=== PATIENT | female | born 1985 | race African-American/Black ===

== ENCOUNTER 2018-08-28 10:31 | Observation (INO) | payer OTHER, SELFPAY ==
[2018-08-28 11:17] LABS: Hemoglobin 4.4 g/dL (12.0-16.0); Mean Corpuscular HGB CONC 29.7 g/dL (32.0-36.0); Mean Corpuscular Hemoglobin 19.8 pg (27.0-31.0); Mean Corpuscular Volume 66.7 fL (78.0-98.0); Mean Platelet Volume 9.3 fL (7.4-10.4); Platelet Count 381 thou/uL (130-400); RBC Distribution Width 18.3 % (11.5-14.5); Red Blood Cell (RBC) Count 2.21 mill/uL (4.20-5.40); White Blood Cell (WBC) Count 8.9 thou/uL (4.8-10.8)
[2018-08-28 11:42] LABS: #Lymphocytes 1.6 thou/uL (1.20-3.40); #Monocytes 0.4 thou/uL (0.11-0.59); #Neutrophils 6.8 thou/uL (1.40-6.50); %Basophils 0.2 % (0.0-1.0); %Eosinophils 0.4 % (0.0-10.0); %Neutrophils 76.4 % (42.0-75.0); Hypochromia SLIGHT = 6-15 cells (100X) (0-5/hpf); MDiff Complete? YES; Microcytosis MODERATE=15-30 cells (100X) (0-5/hpf); Ovalocytes SLIGHT = 2-5 cells (100X) (0-1/hpf); Platelet Morphology Comment Appears Adequate; Polychromasia MODERATE = 3-4 cells (100X) (0-2/hpf); Tear Drops SLIGHT = 2-5 cells (100X) (0-1/hpf)
[2018-08-28] MEDS ORDERED: Acetaminophen 325 MG TAB PO PRN (11:45)
[2018-08-28] MEDS ORDERED: Ondansetron PF 4 MG/2 ML Vial IVP PRN (11:45)
[2018-08-28] MEDS ORDERED: Ondansetron ODT 4 MG TAB PO PRN (11:45)
[2018-08-28] MEDS ORDERED: Zolpidem Tartrate 5 MG TAB PO PRN (11:45)
[2018-08-28 12:06] LABS: ALT (SGPT) 12 U/L (8-55); AST (SGOT) 14 U/L (5-34); Albumin 4.1 g/dL (3.5-5.0); Alkaline Phosphatase 87 U/L (40-150); Anion Gap 11 mmol/L (10-20); BHCG - Serum Negative (NEGATIVE); BUN (Urea Nitrogen) 10 mg/dL (7.0-18.7); Bilirubin, Total 0.4 mg/dL (0.2-1.2); Calc. Creatinine Clearance 0 mL/min (70-130); Calcium 9.2 mg/dL (7.8-10.44); Carbon Dioxide 26 mmol/L (22-29); Chloride 104 mmol/L (98-107); Estimated GFR-MDRD Greater than 90; Globulin 3.6 g/dL (2.4-3.5); Glucose 123 mg/dL (70-105); Potassium 3.7 mmol/L (3.5-5.1); Pregs Control Background? CLEAR/WHITE (CLR/WHITE); Pregs Control Bar Appear? YES (CONTROL BAR); Protein, Total 7.7 g/dL (6.0-8.3); Sodium 137 mmol/L (136-145)
--- NOTE | 2018-08-28 12:35 | ULT ---
ULTRASOUND PELVIC ULTRASOUND TRANSVAGINAL DOPPLER DUPLEX: DATE: 08-28-18 HISTORY: Menorrhagia in 33-year-old female. TECHNIQUE: Transabdominal transducer used to evaluate intrapelvic contents. Endovaginal transducer used to visua lize intrapelvic contents in greater detail. Color flow Doppler and Pulsed Doppler spectral waveform analysis of ovaries. FINDINGS: Uterus measures 7.5 x 9 x 5.5 cm. Endometrial stripe is 0.8 cm (8 mm). A region of hypervascularity surrounding the endometrial stripe at the lower uterine segment. No moderate size or large uterine leiomyoma identified. No free fluid in the cul-de-sac identified. Right ovary: 4.2 x 2.3 x 3.5 cm Left ovary: 3.2 x 4.5 x 2.5 cm Blood flow demonstrated in both ovaries by doppler. IMPRESSION: 1. Endometrial stripe 8 mm. 2. Possibility of polycystic ovary disease. Recommend clinical correlation. ARIAN Johnson POS: DODIE
[2018-08-28 15:48] VITALS: BMI 41.7
[2018-08-28] MEDS: Famotidine 20 MG TAB PO SCH (21:06)
--- NOTE | 2018-08-28 23:54 | HP ---
CHIEF COMPLAINT: Vaginal bleeding and dizziness. HISTORY OF PRESENT ILLNESS: This is a 33-year-old, para 3, who presented to the emergency department with a history of abnormal uterine bleeding as well as dizziness. She reports that she has had almost daily bleeding since she delivered her last child 11 years ago, but over the last several years it has become heavy , requiring multiple transfusions. The patient reports that she has been seen by doctor in [place] for this and has had D and C, tried control pills, but would ultimately like a hysterectomy. She denies any abdominal pain or cramping associated with this. She reports that at its heaviest she has to use a super tampon, a large pad and extra tissue, clean it, and has to change it every hours. She reports that the bleeding is mild at this time. REVIEW OF SYSTEMS: Negative for head, eyes, ears, nose, throat, cardiovascular, respiratory, GI, , neuro, psych, musculoskeletal, skin, or constitutional symptoms other than mentioned above. PAST MEDICAL HISTORY: None. PAST SURGICAL HISTORY: 1. D and C. 2. Bilateral tubal ligation. MEDICATIONS: None. ALLERGIES: NO KNOWN DRUG ALLERGIES. SOCIAL HISTORY: Negative for tobacco, alcohol, or drug abuse. FAMILY HISTORY: Negative for breast, ovary, uterine, or colon cancers. PHYSICAL EXAMINATION: VITAL SIGNS: Temperature 99.5, blood pressure 121/60, pulse 93, respiratory rate 20, O2 saturation 100% on room air. GENERAL: Awake, alert, in no acute distress. CHEST: Nonlabored breathing. ABDOMEN: Soft, obese, nontender to palpation. LABORATORY DATA: Hemoglobin 4.4, hematocrit 14.8, platelets 381. Chemistry essentially unremarkable. test negative. IMAGING: Transvaginal ultrasound performed by Radiology revealing no myometrial abnormalities. Endometrial stripe measuring 8 mm with the region of hypervascularity surrounding the endometrial stripe at the lower uterine segment. No free fluid in the cul-de-sac. Good blood flow to both ovaries. Impression, possibility of polycystic ovary disease. ASSESSMENT AND PLAN: A 33-year-old, para 3, with: 1. abnormal uterine bleeding, likely anovulatory in nature. She has tried what sounds like several options for medical management with minimal for no improvement. The patient would like definitive management and will be referred to [facility] for further discussion. 2. Symptomatic anemia. She will be admitted for transfusion of blood products with a likely discharge in the morning. Job ID: [id number] MTDD
[2018-08-29 07:54] LABS: Mean Corpuscular Volume 73.6 fL (78.0-98.0)
[2018-08-29 07:56] LABS: Hemoglobin 7.3 g/dL (12.0-16.0); Mean Corpuscular HGB CONC 31.8 g/dL (32.0-36.0); Mean Corpuscular Hemoglobin 23.4 pg (27.0-31.0); Mean Platelet Volume 9.4 fL (7.4-10.4); Platelet Count 291 thou/uL (130-400); RBC Distribution Width 18.6 % (11.5-14.5); Red Blood Cell (RBC) Count 3.12 mill/uL (4.20-5.40)
[2018-08-29 08:05] VITALS: BP 130/58; TEMP 97.8
[2018-08-29] MEDS: Famotidine 20 MG TAB PO SCH (09:01)
--- NOTE | 2018-08-29 09:47 | PDOC.EVN ---
Event Note - Event Note Event Note: Now s/p 3 units PRBC. BP= 130/58, P= 84. Hgb returns 7.3. Has Dc orders by Dr. Hollis for home, with rxs. for Provera nad Fe. Has referral for [facility].
--- NOTE | 2018-08-30 23:40 | DIS ---
DATE OF ADMISSION: 08/28/2018 DATE OF DISCHARGE: 08/29/2018 DIAGNOSES: 1. Abnormal uterine bleeding. 2. Symptomatic anemia. PROCEDURES: 1. Transfusion of 3 units packed red blood cells. 2. Transvaginal Ultrasound HOSPITAL COURSE: The patient presented to the emergency department for dizziness with longstanding abnormal uterine bleeding. She has been managed in [place] prior to this and has required multiple blood transfusions. She was admitted for transfusion of blood products, although she is not bleeding heavily at this point. After transfusion of 3 units, her symptoms have resolved. Her hemoglobin went from 4.4 to 7.3, and the patient was discharged home. DISCHARGE MEDICATIONS: Provera 10 mg p.o. daily for 10 days. FOLLOWUP: [facility] [place] for further evaluation and management. ACTIVITIES: As tolerated. DIET: Regular. INSTRUCTIONS: Call or return as needed. Job ID: [id number] MTDD
== END 2018-08-29 11:05 | disposition home or self-care (01) ==
LOC: ERS 10:31 → INTOOBSV 11:45 → 3SE 11:45
PROVIDERS: ADMIT Obstetrics & Gynecology; ATTEND Obstetrics & Gynecology
DX: N93.9 Abnormal uterine and vaginal bleeding, unspecified (principal); Z98.51 Tubal ligation status; Z98.890 Other specified postprocedural states; Z79.890 Hormone replacement therapy
CPT/HCPCS: 36415; 36430; 76856; 80053; 84703; 85025; 85027; 86850; 86900; 86901; 96360; 96361; G0378; P9016

== ENCOUNTER 2018-09-30 05:43 | Day surgery (SDC) | payer OTHER ==
[2018-09-27 12:11] VITALS: BMI 41.7
[2018-09-27 13:27] LABS: Hemoglobin 10.2 g/dL (12.0-16.0); Mean Corpuscular HGB CONC 30.4 g/dL (32.0-36.0); Mean Corpuscular Hemoglobin 22.8 pg (27.0-31.0); Mean Corpuscular Volume 74.9 fL (78.0-98.0); Mean Platelet Volume 10.6 fL (7.4-10.4); Platelet Count 369 thou/uL (130-400); RBC Distribution Width 20.8 % (11.5-14.5); Red Blood Cell (RBC) Count 4.47 mill/uL (4.20-5.40)
[2018-09-27 13:38] LABS: BHCG - Serum Negative (NEGATIVE); Pregs Control Background? CLEAR/WHITE (CLR/WHITE); Pregs Control Bar Appear? YES (CONTROL BAR)
[2018-09-30] MEDS ORDERED: CeleCOXIB 100 MG CAP ONE (06:17)
[2018-09-30] MEDS ORDERED: Gabapentin 300 MG CAP ONE (06:17)
[2018-09-30] MEDS ORDERED: Famotidine/PF 20 mg/2ml Vial ONE (06:17)
[2018-09-30] MEDS ORDERED: Fentanyl 100 MCG/2 ML VIAL ONE ×3 (06:27→10:19)
[2018-09-30] MEDS ORDERED: Bupivacaine PF 0.5% 30 ML VIAL ONE (07:24)
[2018-09-30] MEDS ORDERED: Acetaminophen 325 MG TAB PO PRN (09:25)
[2018-09-30] MEDS ORDERED: Bisacodyl 10 MG SUPP PR PRN (09:25)
[2018-09-30] MEDS ORDERED: diphenhydrAMINE 25 MG CAP PO PRN (09:25)
[2018-09-30] MEDS ORDERED: Ondansetron PF 4 MG/2 ML Vial IVP PRN (09:25)
[2018-09-30] MEDS ORDERED: Simethicone Chewable 80 MG TAB PO PRN (09:25)
[2018-09-30] MEDS ORDERED: HYDROcodone/Acetaminophen 5/325 mg Tablet PO PRN (09:25)
[2018-09-30] MEDS ORDERED: Zolpidem Tartrate 5 MG TAB PO PRN (09:25)
[2018-09-30] MEDS ORDERED: Promethazine HCl 25 MG/ML VIAL IM PRN (09:25)
[2018-09-30] MEDS ORDERED: Meperidine HCl/PF 25 MG/ML VIAL ONE (09:46)
[2018-09-30] MEDS: Ketorolac Tromethamine 30 MG/ML VIAL IVP SCH ×2 (11:30→17:53)
[2018-09-30] MEDS: Morphine 4 MG/ML VIAL SLOW IVP PRN ×2 (11:31→16:58)
[2018-09-30] MEDS: Lactated Ringer's 1,000 ML IV SCH ×2 (11:34→14:50)
[2018-09-30] MEDS ORDERED: Ondansetron PF 4 MG/2 ML Vial ONE (12:06)
[2018-09-30] MEDS ORDERED: PROPOFOL 200 MG/20 ML VIAL ONE (12:06)
[2018-09-30] MEDS ORDERED: Glycopyrrolate 0.2 MG/ML 5 ML SYRINGE ONE (12:06)
[2018-09-30] MEDS ORDERED: Lidocaine 1% PF 5 ML VIAL ONE (12:06)
[2018-09-30] MEDS ORDERED: Dexamethasone 20 MG/5 ML VIAL ONE (12:06)
[2018-09-30] MEDS ORDERED: Rocuronium Bromide 10 MG/ML (10ML VIAL) ONE (12:06)
[2018-09-30] MEDS: HYDROcodone/Acetaminophen 5/325 mg Tablet PO PRN ×2 (14:48→18:47)
--- NOTE | 2018-09-30 17:18 | OP ---
DATE OF PROCEDURE: 09/30/2018 PREOPERATIVE DIAGNOSES: 1. Menorrhagia. 2. Anemia. POSTOPERATIVE DIAGNOSES: 1. Menorrhagia. 2. Anemia. 3. Left-sided hydrosalpinx. PROCEDURES PERFORMED: Robotic assisted total laparoscopic hysterectomy and bilateral salpingectomy. ANESTHESIA: General endotracheal. BLENDER/BRAZE APPLICATOR SURGEON: Jordyn Raymond DO ESTIMATED BLOOD LOSS: 20 mL. IVF: 800 mL crystalloid. URINE OUTPUT: 350 mL clear urine. PATHOLOGY: Uterus, cervix, and bilateral fallopian tubes. COMPLICATIONS: None. DRAINS: Benitez catheter. FINDINGS: Mobile 12 week size uterus sounded to 10 cm. Normal-appearing cervix and vagina. Left fallopian tube with hydrosalpinx. Bilateral ovaries were normal. Right fallopian tube normal-appearing. DESCRIPTION OF PROCEDURE: The patient was taken to the operating room, where general anesthesia was obtained without difficulty. The patient was prepped and draped in a sterile fashion in a dorsal lithotomy position. Benitez catheter was placed in the bladder. A speculum was placed in the vagina. The anterior lip of the cervix was grasped with single-tooth tenaculum. The uterus then sounded to 10 cm and the cervix was progressively dilated with Rinku dilators. The HAIM manipulator was assembled with a 10 cm tip and a 4 cm colpotomizer ring. The HAIM tip was inserted to the uterine fundus. The balloon was inflated. Tenaculum and speculum were removed out of the vagina and colpotomizer ring was advanced fit snugly around the cervix and vaginal occluder, balloon was inflated. The legs were placed in low lithotomy. Attention was turned to the abdomen. A 12 mm incision was made in the umbilicus after infiltrating with 0.5% Marcaine with epinephrine. A Veress needle was passed into the abdomen noting an opening pressure of 5 mmHg. Pneumoperitoneum was obtained without difficulty. The Veress was removed. The 12 mm trocar was advanced into the abdomen and confirmed placement with the robotic camera. Steep Trendelenburg was obtained. The right and left lower quadrant 8 mm robotic trocars were placed under direct visualization after infiltrating with 0.5% Marcaine with epinephrine. A right upper quadrant golf player assistant port that was 11 mm was placed under direct visualization after infiltrating with 0.5% Marcaine with epinephrine. The robot was then docked. The right robotic arm contained monopolar scissors left robotic arm contained a fenestrated bipolar. The surgeon console took control and the left fallopian tube was grasped and elevated. The mesosalpinx was clamped and cauterized sequentially until the medial fallopian tube was met. This was clamped across, cauterized, transected, and tube was removed out of the abdomen. The utero-ovarian was cauterized with the fenestrated and transected with the scissors. The round ligament was then cauterized in the midportion and transected. The anterior leaf of the broad ligament was dropped down incising while tenting up with the fenestrated, incising with the scissors down to the level of the bladder flap. The posterior leaf was also dropped down. The ureter was noted running laterally in the pelvic sidewall. The posterior leaf was incised down to the level of the uterosacral ligament and the vessels were skeletonized with the scissors as well as blunt dissection with the fenestrated. The bladder flap was then created incising on the pubic cervical fascia and bluntly pushing the tissue down below the level of the colpotomizer ring. Attention was turned to the right side with the right fallopian tube was grasped and elevated. The mesosalpinx was cauterized, fenestrated, and transected with the scissors and the fallopian tube was dissected out of the mesosalpinx and then clamped across, cauterized, transected, and removed out of the abdomen. The utero-ovarian was cauterized and transected followed by the round ligament that was cauterized in the midportion and transected. The posterior leaf then was dropped down, incising with the scissors while tenting with the fenestrated to the level of the uterosacral. The ureter was also noted on this right side running laterally. The anterior leaf of the broad ligament was dropped down to the level of the bladder flap and skeletonization of the vessels was performed with the scissors and blunt dissection. The vessels were then cauterized bilaterally and anterior colpotomy was performed. The vessels were incised bilaterally with the scissors and hemostasis was noted. The posterior colpotomy was then completed and the uterus was removed into the vagina. The scissors were traded out for the needle route salesman and driver and the vaginal cuff was closed with a 2-0 STRATAFIX barbed suture in a running fashion incorporating vaginal mucosa and posterior peritoneum in each bite and then it was run back for second layer. The needle was cut and removed out of the abdomen and the pelvis was copiously irrigated and suctioned and low pressure check was performed with noting excellent hemostasis. The instruments were removed out of the abdomen. The robot was undocked and the ports were removed after releasing the pneumoperitoneum. The fascia of the camera port was closed with 0 Vicryl in a [id number] fashion. The skin was closed with 4-0 Monocryl in a subcuticular fashion and Dermabond was applied. The vaginal cuff was checked and noted to be hemostatic with excellent closure vaginally. All instruments were removed out of the vagina. The patient tolerated the procedure well. Sponge and needle counts correct x2. The patient was taken to recovery in stable condition. The patient received Ancef 2 g prior to the procedure. Job ID: [id number]
[2018-09-30] MEDS: Docusate Calcium (SURFAK) 240 MG CAP PO SCH (21:32)
[2018-09-30] MEDS: Gabapentin 300 MG CAP PO SCH (21:32)
[2018-10-01] MEDS: Ketorolac Tromethamine 30 MG/ML VIAL IVP SCH ×2 (00:14→06:35)
[2018-10-01] MEDS: HYDROcodone/Acetaminophen 5/325 mg Tablet PO PRN ×2 (05:04→11:14)
[2018-10-01 08:13] VITALS: BP 119/61; TEMP 98.4
--- NOTE | 2018-10-01 08:33 | PDOC.EVN ---
Event Note - Event Note Event Note: POD1 S: No complaints, pain controlled, sherice reg diet, voiding. No VB. O: VSSAF NAD unlabored breathing soft/nt/nd Inc c/d/i No e/c/c A: POD1 s/p RATLH P: Met milestones, will ambulate in hallway. DC home today. Hgb pending this am, no sx anemia.
[2018-10-01] MEDS: Gabapentin 300 MG CAP PO SCH (08:47)
[2018-10-01] MEDS: Docusate Calcium (SURFAK) 240 MG CAP PO SCH (08:47)
[2018-10-01 10:02] LABS: Hemoglobin 8.7 g/dL (12.0-16.0); Mean Corpuscular HGB CONC 29.7 g/dL (32.0-36.0); Mean Corpuscular Hemoglobin 22.9 pg (27.0-31.0); Mean Corpuscular Volume 76.9 fL (78.0-98.0); Mean Platelet Volume 9.9 fL (7.4-10.4); Platelet Count 399 thou/uL (130-400); RBC Distribution Width 19.9 % (11.5-14.5); White Blood Cell (WBC) Count 9.8 thou/uL (4.8-10.8)
[2018-10-05] MEDS ORDERED: Ibuprofen 800 MG TAB PO SCH (22:00)
== END 2018-10-01 11:30 | disposition home or self-care (01) ==
LOC: SDC 05:43 → 3SE 09:25 → SDC 10-01 11:30
PROVIDERS: ATTEND Student in an Organized Health Care Education/Training Program
PROC: 0UT94ZZ Resection of Uterus, Percutaneous Endoscopic Approach (ICD-10-PCS; principal; 2018-09-30)
PROC: 0UT74ZZ Resection of Bilateral Fallopian Tubes, Percutaneous Endoscopic Approach (ICD-10-PCS; principal; 2018-09-30)
DX: D25.9 Leiomyoma of uterus, unspecified (principal); D64.9 Anemia, unspecified; N70.11 Chronic salpingitis; E66.9 Obesity, unspecified; Z68.41 Body mass index [BMI] 40.0-44.9, adult; Z79.899 Other long term (current) drug therapy
CPT/HCPCS: 36415; 84703; 85027; 86850; 86900; 86901; 88307; J0690; J1100; J1885; J2001; J2175; J2270; J2405; J2704; J3010; S0020; S0028

== ENCOUNTER 2021-02-20 15:38 | Inpatient (IN) | payer OTHER ==
[2021-02-20 18:02] VITALS: BMI 37.2
[2021-02-20] MEDS ORDERED: Nitroglycerin 0.4 MG TAB (25 Tab Bottle) SL PRN (19:14)
[2021-02-21 01:25] LABS: Bacteria/HPF None Seen HPF (None Seen); Bilirubin Negative (Negative); Blood, Urine Negative (Negative); Clarity Clear (Clear); Glucose, Urine (Dipstick) Normal (Negative); Ketone, Urine Negative (Negative); Leukocyte Negative Leu/uL (Negative); Nitrite Negative (Negative); Protein, Urine (Dipstick) 10 mg/dL (Neg-Trace); RBC/HPF 0-3 HPF (0-3); Specific Gravity, Urine 1.028 (1.002-1.036); WBC/HPF 0-3 HPF (0-3); pH, Urine 6.5 (5.0-9.0)
[2021-02-21 01:28] LABS: Urine Culture Reflex No No
[2021-02-21] MEDS: Amlodipine 5 MG TAB PO SCH (08:59)
[2021-02-21 11:13] LABS: CKMB 1.3 ng/mL (0-6.6)
[2021-02-22 04:29] LABS: #Eosinphils 0.1 thou/uL (0.0-0.7); #Lymphocytes 2.3 thou/uL (1.20-3.40); #Monocytes 0.5 thou/uL (0.11-0.59); #Neutrophils 7.8 thou/uL (1.40-6.50); %Basophils 0.4 % (0.0-1.0); %Eosinophils 1.1 % (0.0-10.0); %Lymphocytes 21.3 % (21.0-51.0); %Neutrophils 72.3 % (42.0-75.0); Hemoglobin 12.7 g/dL (12.0-16.0); Mean Corpuscular HGB CONC 30.9 g/dL (32.0-36.0); Mean Corpuscular Hemoglobin 25.7 pg (27.0-31.0); Mean Platelet Volume 9.2 fL (7.4-10.4); Platelet Count 288 thou/uL (130-400); RBC Distribution Width 12.4 % (11.5-14.5); Red Blood Cell (RBC) Count 4.96 mill/uL (4.20-5.40); White Blood Cell (WBC) Count 10.7 thou/uL (4.8-10.8)
[2021-02-22] MEDS: Amlodipine 5 MG TAB PO SCH (05:20)
[2021-02-22] MEDS ORDERED: Nitroglycerin 100MG/250ML BOT 0 ML ONE (06:38)
[2021-02-22] MEDS ORDERED: Verapamil 5 MG/2 ML VIAL ONE (06:38)
[2021-02-22] MEDS ORDERED: Heparin 10,000 UNITS/ 10 ML VIAL ONE (06:38)
[2021-02-22] MEDS ORDERED: Midazolam HCl 2 mg/2 ml Vial ONE (07:11)
[2021-02-22] MEDS ORDERED: Fentanyl 100 MCG/2 ML VIAL ONE (07:11)
[2021-02-22] MEDS ORDERED: Sodium Chloride 0.9% 200 ML IV PRN (07:51)
[2021-02-22] MEDS ORDERED: Acetaminophen/Codeine 30-300mg Tablet PO PRN (07:51)
[2021-02-22] MEDS ORDERED: Sodium Chloride 0.9% 500 ML IV SCH (08:00)
[2021-02-22] MEDS ORDERED: Iopamidol 370 76% 100 ML VIAL ONE (12:00)
[2021-02-22 12:29] VITALS: BP 125/69; TEMP 98.1
== END 2021-02-22 13:00 | disposition home or self-care (01) | DRG 282 ==
LOC: 2NO 15:38 → OBSVTOIN 02-21 13:32
PROVIDERS: ADMIT Internal Medicine; ATTEND Internal Medicine
PROC: 4A023N7 Measurement of Cardiac Sampling and Pressure, Left Heart, Percutaneous Approach (ICD-10-PCS; principal; 2021-02-22)
PROC: B2111ZZ Fluoroscopy of Multiple Coronary Arteries using Low Osmolar Contrast (ICD-10-PCS; 2021-02-22)
DX: I16.0 Hypertensive urgency (principal); I21.A1 Myocardial infarction type 2; F17.210 Nicotine dependence, cigarettes, uncomplicated; I08.3 Combined rheumatic disorders of mitral, aortic and tricuspid valves; D72.829 Elevated white blood cell count, unspecified; Z71.6 Tobacco abuse counseling; Z98.51 Tubal ligation status; Z90.711 Acquired absence of uterus with remaining cervical stump
CPT/HCPCS: 36415; 81001; 82553; 84484; 85025; 93306; 93458; 99152; G0378; J1644; J2250; J3010; Q9967

== ENCOUNTER 2023-05-28 16:05 | Emergency (ER) | payer MEDICAID, OTHER ==
[2023-05-28 17:13] LABS: #Monocytes 0.5 thou/uL (0.11-0.59); #Neutrophils 8.3 thou/uL (1.40-6.50); %Basophils 0.2 % (0.0-1.0); %Eosinophils 0.2 % (0.0-10.0); %Lymphocytes 14.5 % (21.0-51.0); %Monocytes 4.9 % (0.0-10.0); %Neutrophils 79.7 % (42.0-75.0); Hematocrit 36.7 % (36.0-47.0); Hemoglobin 12.1 g/dL (12.0-16.0); Mean Corpuscular Hemoglobin 26.8 pg (27.0-31.0); Mean Corpuscular Volume 81.2 fl (78.0-98.0); Mean Platelet Volume 10.9 fL (7.4-10.4); Platelet Count 250 10x3/uL (130-400); RBC Distribution Width 13.2 % (11.5-14.5); Red Blood Cell (RBC) Count 4.52 mill/uL (4.20-5.40); White Blood Cell (WBC) Count 10.4 10x3/uL (4.8-10.8)
[2023-05-28 17:33] LABS: BHCG - Serum Negative (NEGATIVE); Pregs Control Background? CLEAR/WHITE (CLR/WHITE); Pregs Control Bar Appear? YES (CONTROL BAR)
[2023-05-28 17:39] LABS: ALT (SGPT) 13 U/L (8-55); AST (SGOT) 17 U/L (5-34); Albumin 4.2 g/dL (3.5-5.0); Alkaline Phosphatase 74 U/L (40-110); Anion Gap 14 mmol/L (10-20); BUN (Urea Nitrogen) 10 mg/dL (7.0-18.7); Bilirubin, Total 0.5 mg/dL (0.2-1.2); Calc. Creatinine Clearance 0 mL/min (70-130); Calcium 9.3 mg/dL (7.8-10.44); Carbon Dioxide 22 mmol/L (22-29); Chloride 103 mmol/L (98-107); Estimated GFR 94; Globulin 3.4 g/dL (2.4-3.5); Glucose 116 mg/dL (70-105); Potassium 3.8 mmol/L (3.5-5.1); Protein, Total 7.6 g/dL (6.0-8.3); Sodium 135 mmol/L (136-145)
== END 2023-05-28 18:13 | disposition home or self-care (01) ==
LOC: ERS 16:05
DX: R55 Syncope and collapse (principal); S00.11XA Contusion of right eyelid and periocular area, initial encounter; F41.0 Panic disorder [episodic paroxysmal anxiety]; R56.9 Unspecified convulsions; W19.XXXA Unspecified fall, initial encounter
CPT/HCPCS: 36415; 70450; 80053; 83605; 84146; 84703; 85025; 93005